=== PATIENT | female | born 2000 | race Hispanic/Latino ===

== ENCOUNTER 2019-03-19 11:33 | Emergency (ER) | payer OTHER ==
[~2019-03-19] VITALS: Ht 157.5 cm; Wt 47.2 kg
[2019-03-19 12:06] LABS: BASOPHILS % 0.5 % (0.0-1.0); EOSINOPHILS # (AUTO) 0.1 (0.0-0.4); EOSINOPHILS % 0.7 % (0.0-6.0); LYMPHOCYTES # (AUTO) 1.7 (1.0-3.2); LYMPHOCYTES % 19.7 % (18.0-39.1); MEAN CORPUSCULAR HGB CONC 34.1 g/dL (31-35); MEAN CORPUSCULAR VOLUME 90.7 fL (81-99); MONOCYTES # (AUTO) 0.5 (0.2-0.8); MONOCYTES % 5.9 % (4.4-11.3); NEUTROPHILS # (AUTO) 6.5 (2.1-6.9); NEUTROPHILS % 72.7 % (38.7-80.0); PLATELET COUNT 313 x10e3/uL (140-360); RED BLOOD COUNT 4.52 x10e6/uL (3.6-5.1); RED CELL DISTRIBUTION WIDTH 12.7 % (11.7-14.4)
[2019-03-19 12:19] LABS: BILIRUBIN,URINE NEGATIVE (NEGATIVE); CLARITY,URINE CLEAR (CLEAR); COLOR,URINE YELLOW (YELLOW); KETONES,URINE NEGATIVE (NEGATIVE); LEUKOCYTE ESTERASE ,URINE NEGATIVE (NEGATIVE); NITRITE,URINE NEGATIVE (NEGATIVE); PROTEIN,URINE DIPSTICK NEGATIVE (NEGATIVE); URINE UROBILINOGEN 0.2 mg/dL (0.2 - 1)
[2019-03-19 12:25] LABS: ANION GAP 13.7 mmol/L (8-16); BLOOD UREA NITROGEN 7 mg/dL (7-26); BUN/CREATININE RATIO 10 (6-25); CALCIUM 9.9 mg/dL (8.4-10.2); CARBON DIOXIDE 23 mmol/L (22-29); CHLORIDE 104 mmol/L (98-107); CREATININE, SERUM 0.72 mg/dL (0.57-1.11); EST GLOMERULAR FILTRATION RATE > 60 ML/MIN (60-); GLUCOSE 87 mg/dL (74-118); POTASSIUM 3.7 mmol/L (3.5-5.1); SODIUM 137 mmol/L (136-145)
[2019-03-19 12:39] LABS: BACTERIA,URINE RARE /HPF; EPITHELIAL CELLS,URINE FEW /LPF; WBC,URINE (MAN) 0-5 /HPF (0-5)
--- NOTE | 2019-03-19 12:44 | Diagnostic Imaging Report ---
EXAMINATION: US OB TRANSVAG 1ST TRI SINGLE INDICATION: Pelvic pain COMPARISON: None Technique: Transvaginal grayscale, color Doppler images of the pelvis were obtained. FINDINGS: LMP: 02/06/2019 The uterus measures 7.8 x 3.9 x 5.6 cm. There is a single intrauterine with gestational sac measuring up to 0.9 cm, corresponding with estimated gestational age of 5 weeks, 3 days. [place]-rump length not seen. Yolk sac measures up to 0.4 cm. No heart tone detected, which is normal for early first trimester . The right ovary measures 3.5 x 2.3 x 2.6 cm and contains a 1.4 x 1.2 x 1.3 cm cystic structure, compatible with physiologic corpus luteum. The left ovary measures 2.7 x 1.6 x 1.7 cm and appears unremarkable. IMPRESSION: Single intrauterine with estimated gestational age of 5 weeks, 3 days. Signed by: Peri Zaman MD on 03/19/2019 12:41 PM
--- OUTSIDE RECORDS SUMMARY | 2019-03-23 12:51 | XMS REPORT ---
Author Author [facility] Address Unknown Phone Unavailable Care Team Providers Care Wicker Molded Candles Name Role Phone Ivette CARR Unavailable Unavailable Problems This patient has no known problems. Allergies, Adverse Reactions, Alerts This patient has no known allergies or adverse reactions. Medications This patient has no known medications. Results Test Description Test Time Test Comments Text Results Atomic Results Result Comments US OB TRANSVAG 1ST TRI SINGLE 2019-03-19 12:36:00 [place] [address] Patient Name: MOISES IVORY MR #: [id number] : 2000 Age/Sex: 19/F Req #: [id number] Adm Physician: Ordered by: FÉLIX HORTA TILE EDGER Report #: [id number] Location: ER Room/Bed: Procedure: [id number] US/US OB TRANSVAG 1ST TRI SINGLE Exam Date: 03/19/19 Exam Time: 1208 REPORT STATUS: Signed EXAMINATION: US OB TRANSVAG 1ST TRI SINGLE INDICATION: Pelvic pain COMPARISON: None Technique: Transvaginal grayscale, color Doppler images of the pelvis were obtained. FINDINGS: LMP: 02/06/2019 The uterus measures 7.8 x 3.9 x 5.6 cm. There is a single intrauterine with gestational sac measuring up to 0.9 cm, corresponding with estimated gestational age of 5 weeks, 3 days. [place]-rump length not seen. Yolk sac measures up to 0.4 cm. No heart tone detected, which is normal for early first trimester . The right ovary measures 3.5 x 2.3 x 2.6 cm and contains a 1.4 x 1.2 x 1.3 cm cystic structure, compatible with physiologic corpus luteum. The left ovary measures 2.7 x 1.6 x 1.7 cm and appears unremarkable. IMPRESSION: Single intrauterine with estimated gestational age of 5 weeks, 3 days. Signed by: Jose Cruz MD on 03/19/2019 12:41 PM Dictated By: JOSE CRUZ MD [id number] Transcribed By: PRAFUL on 03/19/19 1241 COPY TO: FÉLIX HORTA NP
== END 2019-03-19 13:50 | disposition home or self-care (01) ==
LOC: ER 11:33
DX: O26.91 Pregnancy related conditions, unspecified, first trimester (principal); R10.32 Left lower quadrant pain
CPT/HCPCS: 36415; 76817; 80048; 81001; 84702; 85025; 99284